=== PATIENT | female | born 1985 | race Caucasian/White ===

== ENCOUNTER → 2020-07-04 | Outpatient (CLI) | payer OTHER, SELFPAY ==
[2016-06-19 13:51] VITALS: BMI 23.8
[2020-07-04 15:38] LABS: D-Dimer Quantitative (DVT/PE) < 0.27 FEU/ug/m (0.27-0.49)
== END | disposition home or self-care (01) ==
LOC: LABSPEC 14:29
PROVIDERS: PCP Student in an Organized Health Care Education/Training Program; Visit Provider Family Medicine
DX: R05 Cough (principal); Z86.16 Personal history of COVID-19; R07.9 Chest pain, unspecified
CPT/HCPCS: 85379